=== PATIENT | female | born 1960 | race African-American/Black ===

== ENCOUNTER → 2017-08-23 | Outpatient (CLI) | payer BC ==
[~2017-08-23] VITALS: Ht 165.1 cm; Wt 108.9 kg
[~2017-08-23] MED LIST: AMLODIPINE BESY10 MG PO; FOLBIC RF TABL1 EACH PO; KLOR-CON 1010 MEQ PO; LOSARTAN POTAS100 MG PO; LOSARTAN-HCTZ1 EAC1 PO; MAGOX 400400 MG PO; NABUMETONE 750750 M1 PO; TUMS PO; UNICOMPLEX M TA1 TA1 PO; VITAMIN D1000 UNI1 PO
--- NOTE | ~2017-08-23 | HPC ---
[facility] [place] [address] PAIN MANAGEMENT CONSULTATION Name: EDEL MADDOX EVELINA Room #: REG ENEDELIA Wright#: [id number] Admission: 08/23/17 Attend Phys: Jayro Kirkland DO Discharge: Date of : 62 Report #: [id number] THIS REPORT FOR: //name// CC: Dr. Jose Elias Kirkland The patient is a very pleasant 56-year-old female, seen in consultation at the request of Dr. Schroeder for evaluation of pain, low back, right greater than left leg. The patient notes pain has been present for 5 years, denies specific antecedent trauma or overuse. She has been taking anti-inflammatory medications [id number] with some efficacy. Physical therapy off and on has helped, she resumed physical therapy in June and July; however, doing a gluteal stretch exercise, she exacerbated pain and has been unable to continue with exercising, she rates her pain a 9-10 on a VAS, describes continuous, steady, constant, crushing, and pulling pain, this is exacerbated with standing, walking, or lifting; some relief when she is recumbent. The patient denies any myelopathic symptoms, no bowel or bladder continence changes, does have subjective weakness in the right greater than left leg. REVIEW OF SYSTEMS: A complete review of systems was attached to chart and was gone over with the patient. She is . She has adult children, ages 20, 37, and 45. She does not smoke or drink alcohol to excess. History of hypertension, treated with losartan and amlodipine. 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 She had partial hysterectomy 20 years ago. She works in a clerical position, she has continued to work despite pain. Otherwise, a 12-point review of systems is noncontributory (negative). Pain impact score is 41/70. PHYSICAL EXAMINATION: Reveals a 5 feet 5 inches, BMI is 39.9 kg/m2. Blood pressure is 156/84, pulse is 70, respirations are 16, room air oxygen saturation 97%. Cranial nerves 2-12 are grossly intact. Pupils are equal, react to light and accommodation. Extraocular muscles are intact. There is no nystagmus or lateral gaze deviation. Thyroid is unremarkable. Upper extremity strength is preserved. Heart is regular with a grade 1-2/6 systolic ejection murmur. Lungs are clear to auscultation. The abdomen shows a modestly endomorphic build. Rises from chair using armrest, does have a moderately antalgic gait and unable to walk on her left toes. Diffuse low back tenderness. No discrete trigger points are noted. Right leg shows absent patellar reflex, 1/4 patellar reflex in the left, Achilles reflex 0-1/4 and symmetric. Lower extremity strength is 4/5 and generally symmetric. Straight leg raise is equivocal on the right. DIAGNOSTIC STUDIES: Include MRI of the lumbar spine from 07/31/2017, shows [address] [address] PAIN MANAGEMENT CONSULTATION Name: EDEL MADDOX EVELINA Room #: REG ENEDELIA Wrigth#: [id number] Admission: 08/23/17 Attend Phys: Jayro Kirkland DO Discharge: Date of : 62 Report #: [id number] grade 1 anterolisthesis at L3-L4, broad-based disk bulge in connection with this causing some moderate central stenosis. There is left greater than right neural foraminal encroachment at this level (contralateral to primarily right greater than left symptoms). Incidentally noted there is a right psoas soft tissue mass. ASSESSMENT: Symptomatic lumbar radiculopathy by clinical exam and history, the patient with history of hypertension and right psoas mass. RECOMMENDATIONS: 1. Discontinue kabq-fsf-fxlofuc anti-inflammatories. We will trial 30 days of nabumetone 750 b.i.d. The patient was cautioned about using nonsteroidal anti-inflammatory agents with hypertension. 2. Epidural injection under fluoroscopy today at L3-L4. 3. Follow up in 3 weeks to reevaluate. Thank you for allowing me to participate in the patient's care, I will keep you abreast of her progress. PROCEDURE: Midline lumbar epidural injection under fluoroscopy. PROCEDURE NOTE: After both written and informed consent to include risk of spinal cord damage, increased pain, weakness and dural puncture, the patient was taken to the fluoroscopy suite, placed in the prone position. After sterile prep and drape, a skin wheal with lidocaine was raised. A 22-gauge epidural Tuohy needle was inserted in the midline at L3-L4 with good loss to resistance. Negative aspiration for cerebrospinal fluid or blood was noted. Then 1 mL of Omnipaque under biplanar fluoroscopy showed good spread within the epidural space. This was followed with 80 mg of triamcinolone plus 1 mL of 1.5% preservative-free Xylocaine, 0.5 mL Xylocaine was then injected to flush the needle; it was removed. The patient was monitored for an appropriate period of time and discharged in good and stable condition. <ELECTRONICALLY SIGNED> By: Jayro Kirkland DO 08/25/17 0819 [id number] [id number] Jayro Kirkland DO /claribel
[2017-08-23 09:02] VITALS: BP 156/84
== END | disposition home or self-care (01) ==
LOC: PAIN 06:59
DX: M54.16 Radiculopathy, lumbar region (principal); I10 Essential (primary) hypertension; Z79.899 Other long term (current) drug therapy; Z68.39 Body mass index [BMI] 39.0-39.9, adult; Z98.890 Other specified postprocedural states

== ENCOUNTER → 2017-09-23 | Outpatient (CLI) | payer BC ==
[~2017-09-23] VITALS: Ht 165.1 cm; Wt 109.8 kg
--- NOTE | ~2017-09-23 | HPC ---
[facility] [place] [address] PAIN MANAGEMENT CONSULTATION Name: VARSHAEDEL Room #: REG [facility] Byron.#: [id number] Admission: 09/23/17 Attend Phys: Jayro Kirkland DO Discharge: Date of : 62 Report #: [id number] THIS REPORT FOR: //name// CC: Sarah Kirkland DATE OF SERVICE: 09/23/2017 The patient is a 56-year-old female, prior seen in consultation 08/13/2017 diagnosed with symptomatic lumbar radiculopathy. Started the patient on nabumetone 750 b.i.d., getting performed a single epidural injection at L3-L4. She returns to pain clinic today noting she had 50%-60% ongoing relief of pain. Still, however, has pain in the right greater than left of lateral thighs. Notes pain is exacerbated with walking, standing, some relief with heat, sitting and ice. She thinks that the nabumetone has been helpful. The patient had 95% relief following the injection for 3 weeks, pain has begun to recur, but she still has 50% ongoing relief. The patient does not take any opiate analgesics. PHYSICAL EXAMINATION: Shows a pleasant 56-year-old female, BMI is 40.3 kilograms per meter squared. Blood pressure is 161/103, pulse 76, respirations are 14. She is alert and oriented to person, place, and time, judged to be a reasonable historian. Rises from chair using armrest. Gait is tandem. Has exacerbation with pain. She has pain with resistance to hip flexion. Patellar reflexes are diminished, a little more on the right than the left. Achilles reflexes are symmetric. Straight leg raise is equivocal. The patient does have an adrenal cyst, which is felt to be responsible for her hypertension. She also has a mass in the right so with soft tissue. RECOMMENDATION: She did follow up with oncologist who noted it is a benign tumor and they talked about NSAID agents helping with any inflammation from that mass. Again, she is doing well with nabumetone 750 b.i.d. We did talk about concerns for cardiac risk factors with NSAID agents in general and for patients with hypertension as well. Suggest she use the Relafen/nabumetone 750 mg b.i.d. on a nondaily basis. I did take the liberty of renewing that prescription today. We reviewed the MRI from 07/31/2017. She does have mild grade 1 anterolisthesis at L3-L4. This in conjunction with some ligamentum flavum hypertrophy result in moderate central stenosis. There is neural foraminal stenosis, left greater than right at this level as well. ASSESSMENT: Symptomatic lumbar radiculopathy with incremental improvement [address] [address] PAIN MANAGEMENT CONSULTATION Name: EDEL MADDOX Room #: REG ENEDELIA Wright#: [id number] Admission: 09/23/17 Attend Phys: Jayro Kirkland DO Discharge: Date of : 62 Report #: [id number] following 1 epidural injection. RECOMMENDATIONS: Repeat epidural injection under fluoroscopy today at L3-L4. Follow up simply on as needed basis. PROCEDURE: Lumbar epidural injection under fluoroscopy. PROCEDURE NOTE: After both written and informed consent to include risk of spinal cord damage, increased pain, weakness and dural puncture, the patient was taken to the fluoroscopy suite, placed in the prone position. After sterile prep and drape, a skin wheal with lidocaine was raised. A 22-gauge epidural Tuohy needle was inserted in the midline at L3-L4 with good loss to resistance. Negative aspiration for cerebrospinal fluid or blood was noted. Then 1 mL of Omnipaque under biplanar fluoroscopy showed good spread within the epidural space. This was followed with 80 mg of triamcinolone plus 1 mL of 1.5% preservative-free Xylocaine, 0.5 mL Xylocaine was then injected to flush the needle; it was removed. The patient was monitored for an appropriate period of time and discharged in good and stable condition. <ELECTRONICALLY SIGNED> By: Jayro Kirkland DO 09/24/17 0659 [id number] 1239 Jayro Kirkland DO /nt
[2017-09-23 08:09] VITALS: BP 161/103
== END | disposition home or self-care (01) ==
LOC: PAIN 07:00
DX: M54.16 Radiculopathy, lumbar region (principal); G89.29 Other chronic pain; I10 Essential (primary) hypertension; Z79.899 Other long term (current) drug therapy; Z98.890 Other specified postprocedural states

== ENCOUNTER → 2017-10-25 | Outpatient (CLI) | payer BC ==
[~2017-10-25] VITALS: Ht 165.1 cm; Wt 110.7 kg
[~2017-10-25] MED LIST changes: +[UNRECOGNIZED DRUG - OTHER]
--- NOTE | ~2017-10-25 | HPC ---
[facility] [place] [address] [place] [address] PAIN MANAGEMENT CONSULTATION Name: EDEL MADDOX Room #: REG [facility] Byron.#: [id number] Admission: 10/25/17 Attend Phys: Jayro Kirkland DO Discharge: Date of : 62 Report #: [id number] THIS REPORT FOR: //name// CC: Sarah Kirkland PROCEDURE: Lumbar epidural injection under fluoroscopy. INDICATION: The patient is a pleasant 56-year-old female, prior seen 09/23/2017, had a second epidural injection under fluoroscopy at that time, returns to pain clinic today noting the injection afforded good relief, though pain is beginning to recur, rates it a 4-5 on a VAS. PHYSICAL EXAMINATION: Otherwise, shows a 56-year-old female, BMI is 40.6 kg/m2. Blood pressure shows modest hypertension, blood pressure 146/91, pulse 74, respirations 16. Rises from chair using armrest, modestly antalgic gait. Pain across the low back radiating to the right leg. She reports overall 50% improvement following prior injections. We reviewed the MRI findings from 07/31/2017, noting grade 1 anterolisthesis at L3-L4. ASSESSMENT: Symptomatic lumbar radiculopathy by clinical exam and history. RECOMMENDATIONS: Repeat epidural injection under fluoroscopy today at L3-L4. Continue nabumetone 750 b.i.d., we will enable the nursing staff to call she needs a renewal. Follow up simply as needed. She understands she cannot get another epidural injection until February or March. If radicular symptoms become quite problematic, we will refer back to Dr. Schroeder for more definitive intervention. Thank you for allowing me to participate in the patient's care. PROCEDURE: Midline epidural injection under fluoroscopy. PROCEDURE NOTE: After both written and informed consent to include risk of spinal cord damage, increased pain, weakness and dural puncture, the patient was taken to the fluoroscopy suite, placed in the prone position. After sterile prep and drape, a skin wheal with lidocaine was raised. A 22-gauge epidural Tuohy needle was inserted in the midline at L3-L4 with good loss to resistance. Negative aspiration for cerebrospinal fluid or blood was noted. Then 1 mL of Omnipaque under biplanar fluoroscopy showed good spread within the epidural space. This was followed with 80 mg of triamcinolone plus 1 mL of 1.5% preservative-free Xylocaine, 0.5 mL Xylocaine was then injected to flush the [address] [address] PAIN MANAGEMENT CONSULTATION Name: EDEL MADDOX Room #: REG [facility].#: [id number] Admission: 10/25/17 Attend Phys: Jayro Kirkland DO Discharge: Date of : 62 Report #: [id number] needle; it was removed. The patient was monitored for an appropriate period of time and discharged in good and stable condition. <ELECTRONICALLY SIGNED> By: Jayro Kirkland DO 10/28/17 0805 1238 1805 Jayro Kirkland DO /nt
[2017-10-25 08:10] VITALS: BP 146/91
== END | disposition home or self-care (01) ==
LOC: PAIN 06:28
DX: M54.16 Radiculopathy, lumbar region (principal); G89.29 Other chronic pain; Z98.890 Other specified postprocedural states; Z79.899 Other long term (current) drug therapy